=== PATIENT | female | born 1955 | race Caucasian/White ===

== ENCOUNTER 2023-11-22 07:04 | Day surgery (SDC) | payer OTHER ==
[~2023-11-22] VITALS: Ht 160 cm; Wt 77.1 kg
[2023-11-22] MEDS ORDERED: LIDOCAINE 2% 100 MG/5 ML UJET TP ONE (10:01)
[2023-11-22] MEDS ORDERED: fentaNYL citrate 0.05 MG/ML VIAL ONE (10:01)
[2023-11-22] MEDS: fentaNYL citrate 0.05 MG/ML VIAL IVP ONE (10:43)
== END 2023-11-22 12:00 | disposition home or self-care (01) ==
LOC: MDS 07:04 → MMU 07:05 → MDS 12:00
PROVIDERS: ATTEND Internal Medicine Gastroenterology
DX: Z12.11 Encounter for screening for malignant neoplasm of colon (principal); K63.5 Polyp of colon; K57.30 Diverticulosis of large intestine without perforation or abscess without bleeding; Z86.010 Personal history of colon polyps; I10 Essential (primary) hypertension; E78.00 Pure hypercholesterolemia, unspecified; Z98.890 Other specified postprocedural states; Z90.49 Acquired absence of other specified parts of digestive tract; Z79.899 Other long term (current) drug therapy
CPT/HCPCS: 45385; J3010